=== PATIENT | female | born 1980 | race African-American/Black ===

== ENCOUNTER 2017-10-01 22:06 | Emergency (ER) | payer SELFPAY ==
--- NOTE | 2017-10-01 23:01 | EDM.PDOC ---
ED HPI GENERAL MEDICAL PROBLEM - General Chief Complaint: General Stated Complaint: COMPLICATIONS WITH PERIOD Time Seen by Provider: 10/01/17 22:07 Source of Information: Reports: Patient - History of Present Illness INITIAL COMMENTS - FREE TEXT/NARRATIVE: HISTORY AND PHYSICAL: History of present illness: 37-year-old female presenting to emergency department with chief complaint of vaginal bleeding 2-3 days. Patient states that for the past 2-3 days she has had increased vaginal bleeding. States that she is going through one pad approximally every hour. States that yesterday she began to have a headache as well as some nausea and vomiting. She denied any dizziness or lightheadedness. She has had also some mild dysuria. States that she had a similar episode in 2012. At that time she saw an [facility] and was told that she had some cancerous lesions on her cervix. States that she followed up later and was told they were not there. Patient states that she has had a tubal ligation. She denies any fever, chills, abdominal pain, bloody stool or dark tarry stools. Currently denies any chest pain, palpitations, shortness of breath, syncopal episodes, focal neurologic deficits. CBC revealed anemia with a hemoglobin of 7.6. I discussed this with the patient and she adamantly refused any blood transfusions. States that she has had low hemoglobin in the past and has chronic anemia. Urinalysis also revealed a positive urinary tract infection. I did give her 1 g of Rocephin as well as 1 L of normal saline. Patient did feel significant better after this. Did call Dr. Ford, [facility], and advised of the patient. He instructed us to have her follow-up in his clinic tomorrow. Review of systems: As per history of present illness and below otherwise all systems reviewed and negative. Past medical history: As per history of present illness and as reviewed below otherwise noncontributory. Surgical history: As per history of present illness and as reviewed below otherwise noncontributory. Social history: No reported history of drug or alcohol abuse. Family history: As per history of present illness and as reviewed below otherwise noncontributory. Physical exam: HEENT: Atraumatic, normocephalic, pupils reactive, negative for conjunctival pallor or scleral icterus, mucous membranes moist, throat clear, neck supple, nontender, trachea midline. Lungs: Clear to auscultation, breath sounds equal bilaterally, chest nontender. Heart: S1S2, regular, negative for clicks, rubs, or JVD. Abdomen: Soft, nondistended, nontender. Negative for masses or hepatosplenomegaly. Negative for costovertebral tenderness. Pelvis: Stable nontender. Genitourinary: Deferred. Rectal: Deferred. Extremities: Atraumatic, negative for cords or calf pain. Neurovascular unremarkable. Neuro: Awake, alert, oriented. Cranial nerves II through XII unremarkable. Cerebellum unremarkable. Motor and sensory unremarkable throughout. Exam nonfocal. Diagnostics: CBC, CMP, UA/UC Therapeutics: 1 g Rocephin, 1 L normal saline, nitrofurantoin 100 mg by mouth twice a day 5 days Impression: Dysfunctional uterine bleeding Anemia Acute cystitis Plan: Please see H&P. Patient was given a prescription for nitrofurantoin 100 milligrams by mouth twice a day 5 days. She is also scheduled to see Dr. Ford , [facility], the following day. She was instructed to return to emergency department if she had any new or worsening symptoms. I did discuss at length that her hemoglobin was very low and this concerned me. She once again refused any kind of blood transfusion or further observation. Definitive disposition and diagnosis as appropriate pending reevaluation and review of above. abdominal Pain Score (Numeric/FACES): 8 - Related Data Allergies Allergy/AdvReac Type Severity Reaction Status Date / Time No Known Allergies Allergy Verified 10/01/17 22:56 Home Meds: Home Meds . [No Known Home Meds] 10/01/17 [History] ED ROS GENERAL - Review of Systems Review Of Systems: ROS reveals no pertinent complaints other than HPI. ED EXAM, GENERAL - Physical Exam Exam: See Below Course - Vital Signs Last Recorded V/S: Last Vital Signs Temp 97.1 F 10/02/17 02:49 Pulse 58 L 10/02/17 02:49 Resp 18 10/02/17 02:49 BP 154/95 H 10/02/17 02:49 Pulse Ox 97 10/02/17 02:49 - Orders/Labs/Meds Orders: Active Orders 24 hr Category Date Time Status CULTURE URINE [RM] Stat Lab 10/01/17 23:03 Ordered UA W/MICROSCOPIC [URIN] Stat Lab 10/01/17 23:03 Ordered Ciprofloxacin in D5W [Cipro in D5W 400 MG/200 ML] 400 Med 10/02/17 01:00 Active mg Premix Bag 1 bag IV Q12H Medication Orders Ciprofloxacin/Dextrose 400 mg/ (Premix) 200 mls @ 200 mls/hr IV Q12H SHANTHI Last Admin: 10/02/17 02:08 Dose: 200 mls/hr Labs: Laboratory Tests 10/01/17 10/01/17 10/01/17 Range/Units 23:03 23:43 23:43 WBC 5.23 (4.0-11.0) K/uL RBC 4.09 L (4.30-5.90) M/uL Hgb 7.6 L (12.0-16.0) g/dL Hct 27.1 L (36.0-46.0) % MCV 66.3 L (80.0-98.0) fL MCH 18.6 L (27.0-32.0) pg MCHC 28.0 L (31.0-37.0) g/dL RDW Std Deviation 46.1 (28.0-62.0) fl RDW Coeff of Femi 19 H (11.0-15.0) % Plt Count 238 (150-400) K/uL MPV Not Reportable Neut % (Auto) 42.2 L (48.0-80.0) % Lymph % (Auto) 46.3 H (16.0-40.0) % [place] % (Auto) 9.0 (0.0-15.0) % Eos % (Auto) 1.9 (0.0-7.0) % Baso % (Auto) 0.6 (0.0-1.5) % Neut # (Auto) 2.2 (1.4-5.7) K/uL Lymph # (Auto) 2.4 (0.6-2.4) K/uL [place] # (Auto) 0.5 (0.0-0.8) K/uL Eos # (Auto) 0.1 (0.0-0.7) K/uL Baso # (Auto) 0.0 (0.0-0.1) K/uL Nucleated RBC % 0.0 /100WBC Nucleated RBCs # 0 K/uL Sodium 139 (136-145) mmol/L Potassium 3.5 (3.5-5.1) mmol/L Chloride 106 (98-107) mmol/L Carbon Dioxide 27.6 (21.0-32.0) mmol/L BUN 11 (7.0-18.0) mg/dL Creatinine 0.8 (0.6-1.0) mg/dL Est Cr Clr Drug Dosing 83.95 mL/min Estimated GFR (MDRD) > 60.0 ml/min Glucose 101 (74-106) mg/dL Calcium 8.9 (8.5-10.1) mg/dL Total Bilirubin 0.2 (0.2-1.0) mg/dL AST 16 (15-37) IU/L ALT 15 (14-63) IU/L Alkaline Phosphatase 51 (46-116) U/L Total Protein 7.4 (6.4-8.2) g/dL Albumin 3.6 (3.4-5.0) g/dL Globulin 3.8 H (2.0-3.5) g/dL Albumin/Globulin Ratio 1.0 L (1.3-2.8) Urine Color RED Urine Appearance CLOUDY Urine pH 6.5 (5.0-8.0) Ur Specific [place] 1.020 (1.001-1.035) Urine Protein >=300 (NEGATIVE) mg/dL Urine Glucose (UA) 100 H (NEGATIVE) mg/dL Urine Ketones 15 H (NEGATIVE) mg/dL Urine Occult Blood LARGE H (NEGATIVE) Urine Nitrite POSITIVE H (NEGATIVE) Urine Bilirubin NEGATIVE (NEGATIVE) Urine Urobilinogen 4.0 H (<2.0) EU/dL Ur Leukocyte Esterase MODERATE (NEGATIVE) Urine RBC TOO NUMEROUS TO CT H (0-2/HPF) Urine WBC 1-3 (0-5/HPF) Ur Epithelial Cells OCCASIONAL (NONE-FEW) Urine Bacteria FEW (NEGATIVE) Meds: Medications Generic Name Dose Route Start Last Admin Trade Name Freq PRN Reason Stop Dose Admin Ciprofloxacin/Dextrose 400 mg/ 200 mls @ 200 mls/hr 10/02/17 01:00 10/02/17 02:08 Premix IV 200 mls/hr Q12H SHANTHI Administration Discontinued Medications Generic Name Dose Route Start Last Admin Trade Name Freq PRN Reason Stop Dose Admin Sodium Chloride 1,000 mls @ 999 mls/hr 10/01/17 23:28 10/02/17 02:08 Normal Saline IV 10/02/17 00:28 999 mls/hr STAT ONE Administration Ketorolac Tromethamine 60 mg 10/01/17 23:25 10/02/17 02:12 Toradol IM 10/01/17 23:26 Not Given ONETIME ONE Ketorolac Tromethamine 30 mg 10/01/17 23:41 10/02/17 02:08 Toradol IVPUSH 10/01/17 23:42 30 mg ONETIME ONE Administration Ketorolac Tromethamine Confirm 10/02/17 02:03 10/02/17 02:13 Toradol Administered 10/02/17 02:04 Not Given Dose 30 mg .ROUTE .STK-MED ONE Ondansetron HCl 4 mg 10/01/17 23:41 10/02/17 02:08 Zofran IVPUSH 10/01/17 23:42 4 mg ONETIME ONE Administration Ondansetron HCl Confirm 10/02/17 02:03 10/02/17 02:13 Zofran Administered 10/02/17 02:04 Not Given Dose 4 mg .ROUTE .STK-MED ONE Departure - Departure Time of Disposition: 04:13 Disposition: Home, Self-Care 01 Condition: Good Clinical Impression: Acute cystitis without hematuria, Dysfunctional uterine bleeding Anemia Qualifiers: Anemia type: iron deficiency Iron deficiency anemia type: chronic blood loss Qualified Code(s): D50.0 - Iron deficiency anemia secondary to blood loss ( chronic) - Discharge Information Referrals: PCP,None [Primary Care Provider] - Forms: ED Department Discharge Additional Instructions: My general discharge The following information is given to patients seen in the emergency department who are being discharged to home. This information is to outline your options for follow-up care. We provide all patients seen in our emergency department with a follow-up referral. The need for follow-up, as well as the timing and circumstances, are variable depending upon the specifics of your emergency department visit. If you don't have a primary care physician on staff, we will provide you with a referral. We always advise you to contact your personal physician following an emergency department visit to inform them of the circumstance of the visit and for follow-up with them and/or the need for any referrals to a consulting specialist. The emergency department will also refer you to a specialist when appropriate. This referral assures that you have the opportunity for follow-up care with a specialist. All of these measure are taken in an effort to provide you with optimal care, which includes your follow-up. Under all circumstances we always encourage you to contact your private physician who remains a resource for coordinating your care. When calling for follow-up care, please make the office aware that this follow-up is from your recent emergency room visit. If for any reason you are refused follow-up, please contact the [facility] Emergency Department at and asked to speak to the emergency department charge nurse. [facility] [address] [place] [address] Please call the above number as Dr. Ford, [facility], is expecting to follow-up with you on Friday morning. Please schedule appointment with them. Take antibiotics as prescribed. As we discussed his return to emergency department if any new or worsening symptoms. - My Orders Last 24 Hours: My Active Orders 10/01/17 23:03 CULTURE URINE [RM] Stat UA W/MICROSCOPIC [URIN] Stat 10/02/17 01:00 Ciprofloxacin in D5W [Cipro in D5W 400 MG/200 ML] 400 mg Premix Bag 1 bag IV Q12H - Assessment/Plan Last 24 Hours: My Active Orders 10/01/17 23:03 CULTURE URINE [RM] Stat UA W/MICROSCOPIC [URIN] Stat 10/02/17 01:00 Ciprofloxacin in D5W [Cipro in D5W 400 MG/200 ML] 400 mg Premix Bag 1 bag IV Q12H
[2017-10-01] MEDS ORDERED: Ketorolac 60 MG/2 ML SDV IM ONE (23:25)
[2017-10-01] MEDS ORDERED: Sodium Chloride 0.9% 1,000 ML IV ONE (23:28)
[2017-10-01] MEDS ORDERED: Ketorolac 30 MG/ML SDV IVPUSH ONE (23:41)
[2017-10-01] MEDS ORDERED: Ondansetron 4 MG/2 ML SDV IVPUSH ONE (23:41)
[2017-10-02 00:22] LABS: CHLORIDE,CL 106 mmol/L (98-107); SODIUM,NA 139 mmol/L (136-145)
[2017-10-02] MEDS ORDERED: Ciprofloxacin in D5W 400 MG in Premix Bag 1 BAG IV SCH ×2 (01:00)
[2017-10-02] MEDS ORDERED: Ondansetron 4 MG/2 ML SDV ONE (02:03)
[2017-10-02] MEDS ORDERED: Ketorolac 30 MG/ML SDV ONE (02:03)
== END 2017-10-02 04:25 | disposition home or self-care (01) ==
LOC: MW.ED 22:06
DX: D50.0 Iron deficiency anemia secondary to blood loss (chronic) (principal); N93.8 Other specified abnormal uterine and vaginal bleeding; N30.00 Acute cystitis without hematuria
CPT/HCPCS: 36415; 80053; 81001; 85025; 87086; 96365; 96375; 99284; J0744; J1885; J2405; J7040

== ENCOUNTER 2021-03-22 09:35 | Day surgery (SDC) | payer OTHER, BC ==
[~2021-03-22 09:35] MED LIST: Lactated Ringers 1,000 ML IV SCH; Sodium Chloride 0.9% 10 ML Syringe FLUSH PRN; Sodium Chloride 0.9% 2.5 ML Syringe FLUSH PRN; Sodium Chloride 0.9% 20 ML SDV IV PRN
--- NOTE | 2021-03-22 09:50 | PCM.PREANE ---
Preanesthetic Assessment - Anesthesia/Transfusion/Family Hx Anesthesia History: Prior Anesthesia Without Reaction Transfusion History: No Prior Transfusion(s) - Review of Systems General: No Symptoms Pulmonary: No Symptoms Cardiovascular: No Symptoms Gastrointestinal: No Symptoms Neurological: No Symptoms Other: Reports: None - Physical Assessment NPO Status Date: 03/22/21 NPO Status Time: 00:00 Height: 5 ft 4 in Weight: 172 lb ASA Class: 2 Mental Status: Alert & Oriented x3 Airway Class: Mallampati = 2 Dentition: Reports: Normal Dentition Thyro-Mental Finger Breadths: 3 Mouth Opening Finger Breadths: 3 ROM/Head Extension: Full Lungs: Clear to Auscultation, Normal Respiratory Effort Cardiovascular: Regular Rate, Regular Rhythm - Allergies Allergies/Adverse Reactions: Allergies Allergy/AdvReac Type Severity Reaction Status Date / Time No Known Allergies Allergy Verified 03/16/21 08:45 - Acknowledgements Anesthesia Type Planned: General Anesthesia Pt an Appropriate Candidate for the Planned Anesthesia: Yes Alternatives and Risks of Anesthesia Discussed w Pt/Guardian: Yes Pt/Guardian Understands and Agrees with Anesthesia Plan: Yes PreAnesthesia Questionnaire HEENT History: Reports: Other (See Below) Other HEENT History: wears glasses Cardiovascular History: Reports: Hypertension Respiratory History: Reports: None Gastrointestinal History: Reports: Other (See Below) Other Gastrointestinal History: occasional heartburn Genitourinary History: Reports: UTI, Recurrent [employer]ER History: Reports: Musculoskeletal History: Reports: Fracture Other Musculoskeletal History: fx tib/fib as a child Neurological History: Reports: Head Trauma, Migraines Other Neuro History: head injury as a child Psychiatric History: Reports: Depression, PTSD Endocrine/Metabolic History: Reports: None Hematologic History: Reports: Anemia Immunologic History: Reports: None Oncologic (Cancer) History: Reports: None Dermatologic History: Reports: None - Infectious Disease History Infectious Disease History: Reports: None - Past Surgical History Head Surgeries/Procedures: Reports: None HEENT Surgical History: Reports: None Cardiovascular Surgical History: Reports: None Respiratory Surgical History: Reports: None GI Surgical History: Reports: None Female Surgical History: Reports: Breast Reduction, Tubal Ligation Endocrine Surgical History: Reports: None Neurological Surgical History: Reports: None Musculoskeletal Surgical History: Reports: None Oncologic Surgical History: Reports: None Dermatological Surgical History: Reports: None - SUBSTANCE USE Tobacco Use Status *Q: Former Tobacco User Tobacco Use Within Last Twelve Months: No - HOME MEDS Home Medications: Home Meds Ferrous Sulfate [Iron] 325 mg PO DAILY 03/16/21 [History] Multivitamin 1 tab PO DAILY 03/16/21 [History] amLODIPine Besylate/Benazepril [Amlodipine-Benazepril 5-10 mg] 1 tab PO DAILY 03/16/21 [History] - CURRENT (IN HOUSE) MEDS Current Meds: Current Medications Lactated Ringer's (Ringers, Lactated) 1,000 mls @ 125 mls/hr IV ASDIRECTED SHANTHI Sodium Chloride (Sodium Chloride 0.9% 10 Ml Syringe) 10 ml FLUSH ASDIRECTED PRN PRN Reason: Keep Vein Open Sodium Chloride (Sodium Chloride 0.9% 2.5 Ml Syringe) 2.5 ml FLUSH ASDIRECTED PRN PRN Reason: Keep Vein Open Sodium Chloride (Sodium Chloride 0.9% 10 Ml Syringe) 10 ml FLUSH ASDIRECTED PRN PRN Reason: Keep Vein Open Sodium Chloride (Sodium Chloride 0.9% 2.5 Ml Syringe) 2.5 ml FLUSH ASDIRECTED PRN PRN Reason: Keep Vein Open Sodium Chloride (Sodium Chloride 0.9% 20 Ml Sdv) 10 ml IV ASDIRECTED PRN PRN Reason: IV Use
[2021-03-22] MEDS ORDERED: propofoL 50 ML ONE (11:09)
[2021-03-22] MEDS ORDERED: fentaNYL 100 MCG/2 ML SDV ONE (12:02)
[2021-03-22] MEDS ORDERED: Benzocaine 20% Topical Spray UD ONE (13:39)
--- NOTE | 2021-03-22 14:24 | PCM.POSTAN ---
POST ANESTHESIA ASSESSMENT - MENTAL STATUS Mental Status: Alert, Oriented - VITAL SIGNS Vital Signs: Last Vital Signs Temp 97.0 F 03/22/21 09:58 Pulse 101 H 03/22/21 09:58 Resp 15 03/22/21 09:58 BP 143/91 H 03/22/21 09:58 Pulse Ox 98 03/22/21 09:58 - RESPIRATORY Respiratory Status: Respiratory Rate WNL, Airway Patent, O2 Saturation Stable - CARDIOVASCULAR CV Status: Pulse Rate WNL, Blood Pressure Stable - GASTROINTESTINAL GI Status: No Symptoms - POST OP HYDRATION Hydration Status: Adequate & Stable
--- NOTE | 2021-03-22 14:24 | PCM48HPAN ---
Post Anesthesia Note - EVALUATION WITHIN 48HRS OF ANESTHETIC Vital Signs in Normal Range: Yes Patient Participated in Evaluation: Yes Respiratory Function Stable: Yes Airway Patent: Yes Cardiovascular Function Stable: Yes Hydration Status Stable: Yes Pain Control Satisfactory: Yes Nausea and Vomiting Control Satisfactory: Yes Mental Status Recovered: Yes Vital Signs: Last Vital Signs Temp 97.0 F 03/22/21 09:58 Pulse 101 H 03/22/21 09:58 Resp 15 03/22/21 09:58 BP 143/91 H 03/22/21 09:58 Pulse Ox 98 03/22/21 09:58
--- NOTE | 2021-03-22 14:29 | PCM.OPNOTE ---
- General Post-Op/Procedure Note Date of Surgery/Procedure: 03/22/21 Operative Procedure(s): Diagnostic EGD and colonoscopy Findings: Normal EGD and colonoscopy Pre Op Diagnosis: Iron deficiency anemia Post-Op Diagnosis: same Anesthesia Technique: General Mask Primary Surgeon: Saranya Roman Condition: Good
--- NOTE | 2021-03-23 12:18 | OR ---
SURGEON: SARANYA ROMAN MD DATE OF PROCEDURE: 03/22/2021 PREOPERATIVE DIAGNOSIS: Iron deficiency anemia. POSTOPERATIVE DIAGNOSIS: Iron deficiency anemia. PROCEDURE PERFORMED: Diagnostic esophagogastroduodenoscopy and colonoscopy. PRIMARY SURGEON: Endoscopist: Saranya Roman MD ANESTHESIA: General. INSTRUMENT USED: Olympus endoscope and colonoscope. EXTENTS OF THE EXAM: To the second portion of duodenum, to the cecum. PREPARATION: Good. LIMITATIONS: None. INDICATIONS: The patient is a 40-year-old female who presented to my office with iron- deficiency anemia. As a part of her workup, it was recommended she undergo a diagnostic EGD and colonoscopy. I explained the procedures, expected perioperative course, and the risks. She verbalized understanding and wishes to proceed. PROCEDURE IN DETAIL: The patient was brought into the endoscopy suite and placed in a left lateral decubitus position. A time-out was completed verifying the patient's name, age, date of , allergies, and procedure to be performed. A bite block was placed in the patient's mouth. Anesthesia was induced, and continuous oxygen was provided via nasal cannula throughout the procedure. After adequate sedation was achieved, a well-lubricated endoscope was placed in the patient's mouth and advanced under direct visualization to the level of the second portion of the duodenum. This appeared normal, and a photograph was taken. The scope was then fully withdrawn while examining the color, texture, anatomy, and integrity of the mucosa of the upper GI tract. The duodenum, stomach, and esophagus all appeared normal. Biopsies were taken of the antrum, body, and fundus and sent for histologic review and H pylori testing. Photographs taken of the pylorus and GE junction within the stomach as well as the GE junction within the distal esophagus. The scope was removed and this portion of the procedure terminated. A digital rectal exam was performed. This exam was within normal limits. A well-lubricated colonoscope was inserted in the rectum and advanced under direct visualization to the level of the cecum. The cecum was identified by both visual and anatomic landmarks. A photograph was taken of the cecal cap as well as with the scope retroflexed within the cecum. The scope was then fully withdrawn while examining the color, texture, anatomy, and integrity of the mucosa from the cecum to the anal canal. Findings were consistent with normal colonic mucosa. The scope was brought into the rectum and retroflexed to allow visualization of the anal canal opening. This appeared normal, and a photograph was taken. The scope was straightened out and fully withdrawn. The cecum to anus time was 6 minutes. The patient tolerated the procedure well and was transferred to the PACU in stable condition. ENDOSCOPIC DIAGNOSIS: Iron-deficiency anemia. RECOMMENDATIONS: We will follow up with the patient regarding the biopsies in clinic in 2 weeks. CHIDI LÓPEZ /[id number]
== END 2021-03-22 14:40 | disposition home or self-care (01) ==
LOC: MW.SDS 09:35
PROVIDERS: ATTEND Surgery
DX: D50.9 Iron deficiency anemia, unspecified (principal); I10 Essential (primary) hypertension; Z79.899 Other long term (current) drug therapy; Z98.890 Other specified postprocedural states; Z87.891 Personal history of nicotine dependence
CPT/HCPCS: 43239; 45378; 81025; A9270; J2704; J3010; J7120

== ENCOUNTER 2021-10-23 04:06 | Emergency (ER) | payer OTHER, BC | END 2021-10-23 05:42 | disposition home or self-care (01) | LOC: MW.ED 04:06 | DX: J98.8 Other specified respiratory disorders (principal); I10 Essential (primary) hypertension; Z79.899 Other long term (current) drug therapy | CPT/HCPCS: 71045; 71045-26; 99283; 99285; U0002 ==

== ENCOUNTER 2022-08-21 01:58 | Emergency (ER) | payer OTHER ==
[2022-08-21] MEDS ORDERED: Sodium Chloride 0.9% 10 ML Syringe FLUSH PRN (02:48)
[2022-08-21] MEDS ORDERED: Sodium Chloride 0.9% 2.5 ML Syringe FLUSH PRN (02:48)
[2022-08-21 03:41] LABS: BASOPHILS PERCENT AUTO 0.3 % (0.0-1.5); EOSINOPHILS ABSOLUTE AUTO 0.1 K/uL (0.0-0.7); EOSINOPHILS PERCENT AUTO 1.2 % (0.0-7.0); HEMATOCRIT 38.2 % (36.0-46.0); HEMOGLOBIN 12.4 g/dL (12.0-16.0); LYMPHOCYTES ABSOLUTE AUTO 1.9 K/uL (0.6-2.4); MEAN CORPUSCULAR HEMOGLOBIN 24.4 pg (27.0-32.0); MEAN CORPUSCULAR HGB CONC 32.5 g/dL (31.0-37.0); MONOCYTES ABSOLUTE AUTO 0.3 K/uL (0.0-0.8); MONOCYTES PERCENT AUTO 5.6 % (0.0-15.0); NEUTROPHILS ABSOLUTE AUTO 3.4 K/uL (1.4-5.7); NEUTROPHILS PERCENT AUTO 59.9 % (48.0-80.0); RED BLOOD CELL COUNT 5.09 M/uL (4.30-5.90); WHITE BLOOD CELL COUNT,WBC 5.72 K/uL (4.0-11.0)
[2022-08-21 04:14] LABS: PLATELET COUNT,PLT 231 K/uL (150-400)
[2022-08-21 05:01] LABS: ALBUMIN 4.1 g/dL (3.4-5.0); BILIRUBIN TOTAL 0.2 mg/dL (0.2-1.0); CALCIUM 9.2 mg/dL (8.5-10.1); CARBON DIOXIDE,CO2 23.7 mmol/L (21.0-32.0); CREATININE 0.8 mg/dL (0.6-1.0); EST CRCL DRUG DOSING (CG) 80.72 mL/min; POTASSIUM,K 3.5 mmol/L (3.5-5.1); PROTEIN TOTAL,TP 8.4 g/dL (6.4-8.2); TSH ULTRASENSITIVE 1.45 uIU/mL (0.36-3.74)
== END 2022-08-21 06:51 | disposition home or self-care (01) ==
LOC: MW.ED 01:58
DX: R00.2 Palpitations (principal); I10 Essential (primary) hypertension
CPT/HCPCS: 36415; 80053; 84443; 84484; 84703; 85025; 93005; 99285; J3490

== ENCOUNTER 2023-07-03 15:25 | Emergency (ER) | payer OTHER, BC ==
[2023-07-03] MEDS: Ketorolac 30 MG/ML SDV IM ONE (15:55)
[2023-07-03] MEDS: Lidocaine 4% 1 each Patch TOP ONE (15:56)
[2023-07-03] MEDS: Acetaminophen 325 MG Tab PO ONE (15:57)
== END 2023-07-03 16:52 | disposition home or self-care (01) ==
LOC: MW.ED 15:25
DX: S22.41XA Multiple fractures of ribs, right side, initial encounter for closed fracture (principal); I10 Essential (primary) hypertension; Z79.899 Other long term (current) drug therapy; Z75.8 Other problems related to medical facilities and other health care; W22.8XXA Striking against or struck by other objects, initial encounter; Y93.89 Activity, other specified
CPT/HCPCS: 71101; 96372; 99283; A9270; J1885

== ENCOUNTER 2024-03-29 13:09 | Emergency (ER) | payer OTHER, BC ==
[2024-03-29 13:41] LABS: BASOPHILS ABSOLUTE AUTO 0.05 K/uL (0.00-0.20); BASOPHILS PERCENT AUTO 0.5 % (0.0-1.0); EOSINOPHILS ABSOLUTE AUTO 0.08 K/uL (0.00-0.45); EOSINOPHILS PERCENT AUTO 0.8 % (0.0-6.0); HEMATOCRIT 31.1 % (37.0-47.0); HEMOGLOBIN 8.9 g/dL (12.0-16.0); IMMATURE GRAN ABSOLUTE AUTO 0.03 K/uL (0.00-0.05); IMMATURE GRAN PERCENT AUTO 0.3 % (0.0-0.4); LYMPHOCYTES ABSOLUTE AUTO 2.48 K/uL (1.00-4.80); LYMPHOCYTES PERCENT AUTO 24.8 % (24.0-44.0); MEAN CORPUSCULAR HEMOGLOBIN 18.4 pg (28.0-32.0); MONOCYTES ABSOLUTE AUTO 0.83 K/uL (0.00-0.80); MONOCYTES PERCENT AUTO 8.3 % (0.0-8.0); NEUTROPHILS ABSOLUTE AUTO 6.55 K/uL (1.80-7.70); NEUTROPHILS PERCENT AUTO 65.3 % (41.0-71.0); RED BLOOD CELL COUNT 4.84 M/uL (4.10-5.30); WHITE BLOOD CELL COUNT,WBC 10.02 K/uL (3.9-11.3)
[2024-03-29 13:55] LABS: A/G RATIO 0.9 (0.9-1.6); BILIRUBIN TOTAL 0.2 mg/dL (0.2-1.0); CALCIUM 9.4 mg/dL (8.5-10.1); CARBON DIOXIDE,CO2 23.4 mmol/L (21.0-32.0); CREATININE 0.9 mg/dL (0.6-1.0); EST CRCL DRUG DOSING (CG) 70.32 mL/min; POTASSIUM,K 3.3 mmol/L (3.5-5.1); PROTEIN TOTAL,TP 8.3 g/dL (6.4-8.2)
[2024-03-29 13:59] LABS: MEAN CORPUSCULAR HGB CONC 28.6 g/dL (32.0-36.0); MEAN CORPUSCULAR VOLUME 64.3 fL (83.0-99.0); PLATELET COUNT,PLT 276 K/uL (150-400)
[2024-03-29] MEDS: amLODIPine 5 MG Tab PO ONE (14:20)
[2024-03-29] MEDS: Sodium Chloride 0.9% 2.5 ML Syringe FLUSH PRN (14:21)
[2024-03-29] MEDS: Sodium Chloride 0.9% 10 ML Syringe FLUSH PRN (14:21)
[2024-03-29] MEDS: Ketorolac 30 MG/ML SDV IVPUSH ONE (14:45)
== END 2024-03-29 15:52 | disposition home or self-care (01) ==
LOC: MW.ED 13:09
DX: R07.2 Precordial pain (principal); D64.9 Anemia, unspecified; I10 Essential (primary) hypertension; Z79.899 Other long term (current) drug therapy; Z75.8 Other problems related to medical facilities and other health care
CPT/HCPCS: 36415; 71045; 80053; 84484; 85025; 93005; 96374; 99285; A9270; J1885; J3490